=== PATIENT | female | born 1975 | race African-American/Black ===

== ENCOUNTER 2017-12-08 10:25 | Emergency (ER) | payer OTHER, MEDICAID ==
[~2017-12-08] VITALS: Ht 170.2 cm; Wt 52.2 kg
[2017-12-08 13:10] VITALS: BP 117/76
== END 2017-12-08 13:51 | disposition short-term general hospital (02) ==
LOC: EDBD 10:25 → ER 10:25
DX: O26.891 Other specified pregnancy related conditions, first trimester (principal); S62.101A Fracture of unspecified carpal bone, right wrist, initial encounter for closed fracture; Z3A.00 Weeks of gestation of pregnancy not specified; V43.52XA Car driver injured in collision with other type car in traffic accident, initial encounter; Y93.89 Activity, other specified; Y92.488 Other paved roadways as the place of occurrence of the external cause; Y99.8 Other external cause status